=== PATIENT | female | born 1980 | race Hispanic/Latino ===

== ENCOUNTER 2019-07-10 11:34 | Inpatient (IN) | payer BC ==
[~2019-07-10] VITALS: Ht 154.9 cm; Wt 50.4 kg
[~2019-07-10 11:34] MED LIST: FLU VACC QS2019-20 36MOS UP/PF 60 MCG/0.5 ML ML IM SCH
[2019-07-10] MEDS ORDERED: METOCLOPRAMIDE 10 MG/2 ML VIAL ONE (12:00)
[2019-07-10] MEDS ORDERED: SODIUM CHLORIDE 0.9% 1000ML 1,000 ML IV ONE (12:01)
[2019-07-10] MEDS ORDERED: MORPHINE SULFATE 4 MG/1ML SYG ONE (12:01)
[2019-07-10] MEDS ORDERED: MORPHINE SULFATE 2 MG/ML 1ML SYG ONE (12:01)
[2019-07-10] MEDS ORDERED: SODIUM CHLORIDE 0.9% 50 ML IV ONE (12:02)
[2019-07-10] MEDS ORDERED: IOHEXOL-350 75 ML VIAL IV ONE (12:11)
[2019-07-10 12:17] LABS: EOSINOPHILS % (AUTO) 1.2 % (0.0-8.0); LYMPHOCYTES % (AUTO) 54.9 % (21.0-51.0); MEAN CORPUSCULAR HEMOGLOBIN 30.3 pg (27.0-33.0); MEAN CORPUSCULAR HGB CONC 33.2 g/dL (32.0-36.0); MEAN CORPUSCULAR VOLUME 91.2 fL (79-99); MONOCYTES % (AUTO) 9.3 % (3.0-13.0); NEUTROPHILS % (AUTO) 33.6 % (40.0-77.0); NUCLEATED RED BLOOD CELLS 0.1 % (0.0-0.19); PLATELET COUNT (AUTO) 297 K/uL (130-400); RED BLOOD CELL COUNT(AUTO) 4.28 MIL/uL (4.00-5.50); RED CELL DISTRIBUTION WIDTH 22.4 % (11.0-15.5); WHITE BLOOD COUNT (AUTO) 3.2 K/uL (4.8-10.8)
[2019-07-10 12:36] LABS: CREATININE 0.7 mg/dL (0.5-1.5); POTASSIUM 4.3 mmol/L (3.5-5.1)
[2019-07-10 12:40] LABS: ALBUMIN 3.3 g/dL (3.5-5.0); BILIRUBIN,TOTAL 0.5 mg/dL (0.2-1.0); TOTAL PROTEIN, SERUM 6.7 g/dL (6.0-8.3)
[2019-07-10 13:25] LABS: APPEARANCE,URINE Clear (CLEAR); BILIRUBIN,URINE Negative (NEGATIVE); COLOR,URINE Yellow (YELLOW); GLUCOSE, URINE (UA) Negative (NEGATIVE); KETONES,URINE Negative (NEGATIVE); LEUKOCYTE ESTERASE ,URINE Negative (NEGATIVE); NITRATE,URINE Negative (NEGATIVE); OCCULT BLOOD,URINE Negative (NEGATIVE); PROTEIN,URINE Negative (NEGATIVE); UROBILINOGEN,URINE 0.2 mg/dL (0.2-1.0)
[2019-07-10 14:25] VITALS: BP 114/82
[2019-07-10] MEDS ORDERED: PNEUMOCOCCAL VACCINE POLYVALENT 0.5 ML/VIAL [PPV] IM ONE (15:00)
[2019-07-10] MEDS ORDERED: FLU VACC QS2019-20 36MOS UP/PF 60 MCG/0.5 ML ML IM ONE (15:00)
[2019-07-10] MEDS ORDERED: ADDE10 PO (15:01)
[2019-07-10] MEDS ORDERED: OMEP40CA13 PO (15:01)
[2019-07-10] MEDS ORDERED: ALPR0.5T PO (15:01)
[2019-07-10] MEDS ORDERED: PNEUMOCOCCAL VACCINE POLYVALENT 0.5 ML/VIAL [PPV] IM SCH (15:15)
[2019-07-10] MEDS: LACTATED RINGERS 1000ML 1,000 ML IV SCH ×2 (15:26→19:43)
[2019-07-10 16:17] VITALS: BP 106/72
[2019-07-10] MEDS ORDERED: DIATR MEGLU/DIATRIZOATE SODIUM 30 ML BOTTLE ONE ×2 (17:34→18:02)
[2019-07-10 19:00] VITALS: BP 122/82
[2019-07-10] MEDS: MORPHINE SULFATE 2 MG/ML 1ML SYG IVP PRN (19:21)
[2019-07-10 23:33] VITALS: BP 106/61
[2019-07-11 03:05] VITALS: BP 104/64
[2019-07-11 07:48] VITALS: BP 104/57
[2019-07-11] MEDS: MORPHINE SULFATE 2 MG/ML 1ML SYG IVP PRN ×2 (10:57→18:49)
[2019-07-11] MEDS: LACTATED RINGERS 1000ML 1,000 ML IV SCH ×2 (10:58→21:43)
[2019-07-11 12:01] VITALS: BP 99/64
--- NOTE | 2019-07-11 14:15 | NUR ---
DCP CM met with pt discussed dc plans. Pt is independent prior to admission, lives at home with spouse. Denies any equipments/services. Pt feels safe to go back home, still drives and works, spouse able to assist with transportation and needs as necessary. DC plan to home once stable. CM to cont to follow up. Addendum: 07/11/19 at 1416 by ESTELLE LO LVN CM Amended: Links added.
[2019-07-11 16:39] VITALS: BP 96/57
[2019-07-11] MEDS: ONDANSETRON HCL 4 MG/2 ML VIAL IVP PRN (16:39)
[2019-07-11 19:05] VITALS: BP 99/65
[2019-07-11 23:35] VITALS: BP 99/57
[2019-07-12] VITALS (16 sets, daily range): BP systolic 91–160; BP diastolic 53–79
[2019-07-12] MEDS: LACTATED RINGERS 1000ML 1,000 ML IV SCH ×2 (06:38→17:57)
[2019-07-12] MEDS: MORPHINE SULFATE 2 MG/ML 1ML SYG IVP PRN ×2 (09:15→14:31)
[2019-07-12] MEDS ORDERED: MIDAZOLAM HCL 1 MG/ML 2ML VIAL ONE ×2 (15:36→15:48)
[2019-07-12] MEDS ORDERED: FENTANYL CITRATE PF 50 MCG/1 ML 2ML VIAL ONE (15:39)
[2019-07-12] MEDS: PANTOPRAZOLE SODIUM 40 MG TABLET.DR PO SCH (17:54)
--- NOTE | 2019-07-12 19:59 | NUR ---
Nursing Note Informed doctor that pt stated morphine is not working for her and she wants Dilaudid. Dr. Fernandez stated to D/C morphine and to change to Dilaudid IV 0.5mg q4hrs for pain prn.
[2019-07-12] MEDS: HYDROMORPHONE HCL 0.5 MG/0.5 ML ML IVP PRN (20:43)
[2019-07-13] MEDS: LACTATED RINGERS 1000ML 1,000 ML IV SCH ×2 (01:58→14:45)
[2019-07-13] MEDS: HYDROMORPHONE HCL 0.5 MG/0.5 ML ML IVP PRN ×3 (03:51→17:39)
[2019-07-13 04:00] VITALS: BP 102/68
[2019-07-13 05:47] LABS: CREATININE 0.6 mg/dL (0.5-1.5); POTASSIUM 3.5 mmol/L (3.5-5.1)
[2019-07-13] MEDS: PANTOPRAZOLE SODIUM 40 MG TABLET.DR PO SCH ×2 (06:18→16:30)
[2019-07-13 08:00] VITALS: BP 107/76
[2019-07-13] MEDS: ONDANSETRON HCL 4 MG/2 ML VIAL IVP PRN (08:18)
[2019-07-13 11:00] VITALS: BP 108/72
[2019-07-13] MEDS: METOCLOPRAMIDE 10 MG/2 ML VIAL IVP SCH ×3 (12:35→23:20)
--- NOTE | 2019-07-13 12:44 | NUR ---
REGLAN GIVEN PER ORDER, PATIENT REFUSING TO EAT LUNCH. SPOUSE STATED, "MY SAID SHE WILL NOT EAT". DR. ROBLERO AWARE AND ORDERED TO CONTINUE REGLAN IVP AND REPORT IF PATIENT HAS ANY VOMITING.
[2019-07-13 16:00] VITALS: BP 100/74
[2019-07-13 20:00] VITALS: BP 94/61
[2019-07-14] VITALS (7 sets, daily range): BP systolic 93–104; BP diastolic 55–67
[2019-07-14] MEDS: METOCLOPRAMIDE 10 MG/2 ML VIAL IVP SCH ×4 (05:13→23:15)
[2019-07-14] MEDS: PANTOPRAZOLE SODIUM 40 MG TABLET.DR PO SCH ×2 (05:46→16:30)
[2019-07-14] MEDS: HYDROMORPHONE HCL 0.5 MG/0.5 ML ML IVP PRN ×2 (12:03→19:14)
[2019-07-14] MEDS: ONDANSETRON HCL 4 MG/2 ML VIAL IVP PRN (12:03)
[2019-07-14] MEDS: LACTATED RINGERS 1000ML 1,000 ML IV SCH (16:27)
[2019-07-14] MEDS: PANTOPRAZOLE 40 MG/VIAL IVP SCH (20:15)
[2019-07-15 00:08] VITALS: BP 93/55
[2019-07-15] MEDS: HYDROMORPHONE HCL 0.5 MG/0.5 ML ML IVP PRN ×2 (01:59→08:58)
[2019-07-15 04:06] VITALS: BP 90/48
[2019-07-15] MEDS: LACTATED RINGERS 1000ML 1,000 ML IV SCH (05:06)
[2019-07-15] MEDS: METOCLOPRAMIDE 10 MG/2 ML VIAL IVP SCH ×2 (05:07→12:00)
[2019-07-15 07:00] VITALS: BP 85/49
[2019-07-15] MEDS: PANTOPRAZOLE 40 MG/VIAL IVP SCH (08:57)
[2019-07-15 12:02] VITALS: BP 106/71
[2019-07-15] MEDS ORDERED: FLU VACC QS2019-20 36MOS UP/PF 60 MCG/0.5 ML ML IM ONE (14:00)
== END 2019-07-15 14:15 | disposition home or self-care (01) | DRG 381 ==
LOC: EDH 11:34 → EDHIP 13:30 → OBSVTOIN 13:30 → 3BH 14:20
PROVIDERS: ADMIT Surgery; ATTEND Surgery
PROC: 3E0234Z Introduction of Serum, Toxoid and Vaccine into Muscle, Percutaneous Approach (ICD-10-PCS; principal; 2019-07-12)
PROC: 3E02340 Introduction of Influenza Vaccine into Muscle, Percutaneous Approach (ICD-10-PCS; 2019-07-12)
PROC: 0DJ08ZZ Inspection of Upper Intestinal Tract, Via Natural or Artificial Opening Endoscopic (ICD-10-PCS; 2019-07-12)
DX: K28.9 Gastrojejunal ulcer, unspecified as acute or chronic, without hemorrhage or perforation (principal); E44.1 Mild protein-calorie malnutrition; K21.0 Gastro-esophageal reflux disease with esophagitis; K29.70 Gastritis, unspecified, without bleeding; F41.9 Anxiety disorder, unspecified; K76.0 Fatty (change of) liver, not elsewhere classified; Z87.11 Personal history of peptic ulcer disease; Z90.710 Acquired absence of both cervix and uterus; Z87.891 Personal history of nicotine dependence; Z90.49 Acquired absence of other specified parts of digestive tract; Z98.82 Breast implant status; Z98.84 Bariatric surgery status; Z23 Encounter for immunization; Z88.5 Allergy status to narcotic agent
CPT/HCPCS: 36415; 43235; 74177; 74250; 80048; 80053; 81003; 81025; 83690; 84484; 85025; 87324; 90732; 93005; 99152; 99153; A4606; C9113; G0008; G0009; G0378; J1170; J2250; J2270; J2405; J2765; J3010; J7030; J7120; Q9963; Q9967

== ENCOUNTER 2019-07-22 09:43 | Inpatient (IN) | payer BC ==
[~2019-07-22] VITALS: Ht 154.9 cm; Wt 48.1 kg
[~2019-07-22 09:43] MED LIST changes: +ADDE10 PO; +ALPR0.5T PO; -FLU VACC QS2019-20 36MOS UP/PF 60 MCG/0.5 ML ML IM SCH; +OMEP40CA13 PO
[2019-07-22] MEDS ORDERED: ONDANSETRON HCL 4 MG/2 ML VIAL ONE (10:23)
[2019-07-22 10:26] LABS: APPEARANCE,URINE Clear (CLEAR); BILIRUBIN,URINE Negative (NEGATIVE); COLOR,URINE Dark Yellow (YELLOW); GLUCOSE, URINE (UA) Negative (NEGATIVE); KETONES,URINE >=160 mg/dL (NEGATIVE); LEUKOCYTE ESTERASE ,URINE Negative (NEGATIVE); NITRATE,URINE Negative (NEGATIVE); OCCULT BLOOD,URINE Negative (NEGATIVE); PROTEIN,URINE POS 1+ mg/dL (NEGATIVE)
[2019-07-22 10:35] LABS: AMPHET/METH SCREEN,URINE POSITIVE (NEGATIVE); BARBITURATE SCREEN, URINE NEGATIVE (NEGATIVE); BENZODIAZEPINES SCREEN,URINE POSITIVE (NEGATIVE); CANNABINOID SCREEN,URINE NEGATIVE (NEGATIVE); COCAINE SCREEN,URINE NEGATIVE (NEGATIVE); OPIATE SCREEN,URINE NEGATIVE (NEGATIVE); PHENCYCLIDINE SCREEN,URINE NEGATIVE (NEGATIVE)
[2019-07-22 10:36] LABS: BACTERIA,URINE Rare /HPF (None Seen); RBC,URINE 0-1 /HPF (0-1); SQUAMOUS EPITHELIAL CELL,UR Rare /HPF (0-2); WBC,URINE 0-1 /HPF (0-1)
[2019-07-22 10:37] LABS: MUCUS,URINE Many LPF (None Seen)
[2019-07-22 11:22] LABS: BASOPHILS % (AUTO) 0.7 % (0.0-5.0); EOSINOPHILS % (AUTO) 0.7 % (0.0-8.0); HEMATOCRIT 41.8 % (36-48); LYMPHOCYTES % (AUTO) 44.5 % (21.0-51.0); MEAN CORPUSCULAR HEMOGLOBIN 31.7 pg (27.0-33.0); MEAN CORPUSCULAR HGB CONC 33.7 g/dL (32.0-36.0); MEAN CORPUSCULAR VOLUME 94.2 fL (79-99); MONOCYTES % (AUTO) 9.3 % (3.0-13.0); NEUTROPHILS % (AUTO) 44.8 % (40.0-77.0); NUCLEATED RED BLOOD CELLS 0.1 % (0.0-0.19); PLATELET COUNT (AUTO) 306 K/uL (130-400); RED BLOOD CELL COUNT(AUTO) 4.44 MIL/uL (4.00-5.50); RED CELL DISTRIBUTION WIDTH 19.1 % (11.0-15.5); WHITE BLOOD COUNT (AUTO) 4.9 K/uL (4.8-10.8)
[2019-07-22 11:27] LABS: CREATININE 0.9 mg/dL (0.5-1.5); POTASSIUM 3.7 mmol/L (3.5-5.1)
[2019-07-22 11:31] LABS: ALBUMIN 3.1 g/dL (3.5-5.0); BILIRUBIN,TOTAL 0.8 mg/dL (0.2-1.0); TOTAL PROTEIN, SERUM 6.9 g/dL (6.0-8.3)
[2019-07-22] MEDS ORDERED: SODIUM CHLORIDE 0.9% 1000ML 1,000 ML IV ONE (11:45)
[2019-07-22 12:44] LABS: INR 0.93 (0.85-1.15)
[2019-07-22 12:46] LABS: PROTHROMBIN TIME 9.6 SEC (9.6-11.6)
[2019-07-22] MEDS ORDERED: LIDOCAINE HCL-MPF 1% 2ML VIAL IJ PRN (14:30)
[2019-07-22] MEDS: DEXTROSE 5 % AND 0.9 % NACL 1,000 ML IV SCH ×3 (14:30→23:42)
[2019-07-22] MEDS ORDERED: POTASSIUM CHLORIDE 20MEQ/100ML 100 ML IV PRN (14:30)
[2019-07-22] MEDS ORDERED: ACETAMINOPHEN 325 MG TAB PO PRN (14:30)
[2019-07-22] MEDS ORDERED: POTASSIUM CHLORIDE 10% ELIXIR 20 MEQ/15 ML UDCUP PO PRN (14:30)
[2019-07-22] MEDS ORDERED: ACETAMINOPHEN 325 MG TAB ONE (14:44)
[2019-07-22] MEDS ORDERED: DEXTROSE 5 % AND 0.9 % NACL 1,000 ML IV ONE (14:50)
[2019-07-22 17:35] VITALS: BP 107/64
[2019-07-22] MEDS: ONDANSETRON HCL 4 MG/2 ML VIAL IVP PRN (18:16)
[2019-07-22] MEDS: MORPHINE SULFATE 2 MG/ML 1ML SYG IVP PRN (18:16)
[2019-07-22 19:25] VITALS: BP 109/69
[2019-07-22 23:30] VITALS: BP 98/66
--- NOTE | 2019-07-23 03:28 | NUR ---
ASLEEP Pt sleeping ,arousable.States has some pain but tolerable.Instructed to call for assistance.
[2019-07-23 03:30] VITALS: BP 92/62
[2019-07-23 05:46] LABS: HEMATOCRIT 32.8 % (36-48); MEAN CORPUSCULAR HGB CONC 33.6 g/dL (32.0-36.0); MEAN CORPUSCULAR VOLUME 95.1 fL (79-99); PLATELET COUNT (AUTO) 219 K/uL (130-400); RED BLOOD CELL COUNT(AUTO) 3.44 MIL/uL (4.00-5.50); RED CELL DISTRIBUTION WIDTH 18.9 % (11.0-15.5)
[2019-07-23] MEDS: DEXTROSE 5 % AND 0.9 % NACL 1,000 ML IV SCH ×2 (05:51→18:58)
[2019-07-23] MEDS: MORPHINE SULFATE 2 MG/ML 1ML SYG IVP PRN ×2 (05:55→16:55)
[2019-07-23 06:02] LABS: ALBUMIN 2.1 g/dL (3.5-5.0); BILIRUBIN,TOTAL 0.8 mg/dL (0.2-1.0); CREATININE 0.6 mg/dL (0.5-1.5); MAGNESIUM 1.7 mg/dL (1.80-2.40); POTASSIUM 3.3 mmol/L (3.5-5.1); TOTAL PROTEIN, SERUM 4.9 g/dL (6.0-8.3)
[2019-07-23] MEDS: MAGNESIUM 2GM PREMIX 50ML 50 ML IV PRN (06:32)
[2019-07-23 07:30] VITALS: BP 99/60
[2019-07-23] MEDS ORDERED: MAGNESIUM 2GM PREMIX 50ML 50 ML IV SCH (08:45)
[2019-07-23] MEDS: POTASSIUM CHLORIDE 20 MEQ ERTAB PO PRN ×2 (09:31→16:55)
[2019-07-23 11:00] VITALS: BP 107/74
[2019-07-23 11:47] LABS: INR 1.02 (0.85-1.15); PARTIAL THROMBOPLASTIN TIME 25.4 SEC (26.3-35.5); PROTHROMBIN TIME 10.7 SEC (9.6-11.6)
[2019-07-23] MEDS: METOCLOPRAMIDE 10 MG/2 ML VIAL IVP SCH ×3 (13:19→23:07)
[2019-07-23] MEDS: LORAZEPAM 2 MG/ML 1 ML VIAL IVP PRN (13:20)
--- NOTE | 2019-07-23 14:32 | NUR ---
DCP CM met with pt discussed dc plans. Pt is independent prior to admission, lives at home w/spouse. Denies any equipments/services. Pt feels safe to go back home, still drives and works, spouse able to assist with transportation and needs as necessary. DC plan to home once stable. CM to cont to follow up. Addendum: 07/23/19 at 1433 by ESTELLE LO LVN CM Amended: Links added.
--- NOTE | 2019-07-23 14:57 | NUR ---
PICC LINE 5 PERSIAN 2 LUMEN PICC LINE INSERTED USING STERILE TECHNIQUE TO LEFT UPPER ARM. PT TOLERATED WELL. LINE INSERTED WITHOUT COMPLICATIONS, BOTH PORTS FLUSHED WITHOUT COMPLICATIONS, GOOD BLOOD RETURN ON BOTH PORTS. PICC LINE DRESS PER HOSPITAL PROTOCOL. 37CM INSERTION SITE. 0CM EXPOSED. SITE ASYMPTOMATIC REPORT GIVEN TO ALEXYS LANDEROS RN. PENDING CHEST XRAY REPORT FROM MD BEFORE USING. PICC LINE EDUCATIONS GIVEN PT/SPOUSE. PT DENIED ANY PAIN , NUMBNESS, TINGLING TO LEFT UPPER ARM.
--- NOTE | 2019-07-23 15:11 | NUR ---
TPN ORDERS SEND TO PHARMACY.
[2019-07-23 16:00] VITALS: BP_SYST 107; BP_SYST 97; BP_DIAS 58; BP_DIAS 74
--- NOTE | 2019-07-23 17:19 | NUR ---
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 Recommendations given to RN. Pt LBM 07/22/19. Pt monitored labs: K 3.3, BUN 6, Glu 126, Ca 7.2, Mg 1.70, AST 84, Alb 2.1. RD to continue to monitor. Please notify RD as additional nutrition concerns arise. Thank you. Addendum: 07/23/19 at [address] RD Amended: Links added.
--- NOTE | 2019-07-23 18:25 | NUR ---
WAITING FOR CALL BACK FROM DR. OSBALDO CHOU TO USE PICC LINE.HAS BEEN PAGED TWICE. WILL CALL ON PERSONAL IF IF [employer] CAN GET #
[2019-07-23 20:00] VITALS: BP 94/62
[2019-07-23] MEDS: M.V.I. IV [ADULT] 10 ML in CLINIMIX E 5%-15% 2,000 ML IV SCH (20:36)
[2019-07-23 23:32] VITALS: BP 87/58
--- NOTE | 2019-07-23 23:33 | NUR ---
BP Bp 87/58,pt asymptomatic.Will cont to monitor.
[2019-07-24] VITALS (8 sets, daily range): BP systolic 86–110; BP diastolic 50–74
[2019-07-24] MEDS: METOCLOPRAMIDE 10 MG/2 ML VIAL IVP SCH ×4 (05:10→20:07)
[2019-07-24 06:51] LABS: CREATININE 0.5 mg/dL (0.5-1.5); POTASSIUM 4.3 mmol/L (3.5-5.1)
[2019-07-24 06:52] LABS: MAGNESIUM 1.7 mg/dL (1.80-2.40)
[2019-07-24] MEDS: MAGNESIUM 2GM PREMIX 50ML 50 ML IV PRN (09:17)
[2019-07-24] MEDS: FAT EMULSIONS 20% 250ML 250 ML IV SCH (09:17)
[2019-07-24] MEDS: MORPHINE SULFATE 2 MG/ML 1ML SYG IVP PRN ×2 (09:35→17:02)
[2019-07-24] MEDS: M.V.I. IV [ADULT] 10 ML in CLINIMIX E 5%-15% 2,000 ML IV SCH (15:30)
--- NOTE | 2019-07-24 15:59 | NUR ---
CM Note: [facility] pending approval; [facility] pending approval and delivery for TPN CM met with pt discussed MD recommendations for TPN at home w/HH, pt agreeable. JESSY signed for [facility]/any IN network HH, and [facility]/any In Network DME/Pharmacy. Faxed order, clinicals, picc info to [facility] and [facility], confirmation received. Spoke to Georgie w/[facility] stated in network w/pt's insurance, will check benefits. Pt pending approval for [facility] and [facility] for TPN. Primary nurse aware. CM to cont to follow up.
[2019-07-24] MEDS ORDERED: ZOLPIDEM TARTRATE 5 MG TAB PO PRN (17:45)
[2019-07-24] MEDS ORDERED: M.V.I. IV [ADULT] 10 ML in CLINIMIX E 5%-15% 2,000 ML IV ONE (21:00)
[2019-07-25 04:02] VITALS: BP 104/65
[2019-07-25] MEDS: METOCLOPRAMIDE 10 MG/2 ML VIAL IVP SCH ×4 (04:38→20:05)
[2019-07-25 07:00] VITALS: BP 99/59
[2019-07-25] MEDS: ONDANSETRON HCL 4 MG/2 ML VIAL IVP PRN ×2 (09:26→20:05)
[2019-07-25] MEDS: MORPHINE SULFATE 2 MG/ML 1ML SYG IVP PRN ×2 (09:28→17:34)
[2019-07-25 12:00] VITALS: BP 95/59
[2019-07-25] MEDS: LORAZEPAM 2 MG/ML 1 ML VIAL IVP PRN (12:27)
--- NOTE | 2019-07-25 15:51 | NUR ---
CM Note: [facility] approval Spoke to Armando kingsley/[facility], pt has approval. Requested to have a signed order for [facility] from Dr Schmitt. Flagged order in chart, pending MD to sign. Primary nurse aware. CM to cont to follow up.
--- NOTE | 2019-07-25 15:52 | NUR ---
CM Note [facility]: pending approval and delivery CM spoke to Shira kingsley/Willian , faxed over a generated script requesting Dr Schmitt to sign script. Flagged in chart. Dr Schmitt made aware to sign order for [facility] as well as [facility] for TPN. MD pending to sign. Primary nurse aware. CM to cont to follow up.
--- NOTE | 2019-07-25 15:56 | NUR ---
CM Note: [facility] approval pending delivery Spoke to Shira Orellana. Pt has approval for TPN pending delivery as soon as signed script received. Estimated TOA for TPN via [employer] Monday. Dr Schmitt pending to sign script at this time, flagged in chart. Primary nurse aware. CM to cont to follow up.
[2019-07-25 16:00] VITALS: BP 112/76
[2019-07-25 20:23] VITALS: BP 99/66
[2019-07-25] MEDS ORDERED: M.V.I. IV [ADULT] 10 ML in CLINIMIX E 5%-15% 2,000 ML IV ONE (21:00)
[2019-07-25 23:45] VITALS: BP 99/63
[2019-07-26] MEDS: MORPHINE SULFATE 2 MG/ML 1ML SYG IVP PRN (03:15)
[2019-07-26] MEDS: METOCLOPRAMIDE 10 MG/2 ML VIAL IVP SCH ×2 (03:38→08:27)
[2019-07-26 04:29] VITALS: BP 100/55
[2019-07-26 05:42] LABS: HEMATOCRIT 35.3 % (36-48); MEAN CORPUSCULAR HEMOGLOBIN 31.9 pg (27.0-33.0); PLATELET COUNT (AUTO) 224 K/uL (130-400); RED BLOOD CELL COUNT(AUTO) 3.75 MIL/uL (4.00-5.50); RED CELL DISTRIBUTION WIDTH 18.1 % (11.0-15.5)
[2019-07-26 05:56] LABS: ALBUMIN 2.6 g/dL (3.5-5.0); BILIRUBIN,TOTAL 0.6 mg/dL (0.2-1.0); CREATININE 0.6 mg/dL (0.5-1.5); MAGNESIUM 2.7 mg/dL (1.80-2.40); POTASSIUM 4.3 mmol/L (3.5-5.1); TOTAL PROTEIN, SERUM 5.8 g/dL (6.0-8.3)
[2019-07-26] MEDS: ONDANSETRON HCL 4 MG/2 ML VIAL IVP PRN (08:26)
[2019-07-26] MEDS: FAT EMULSIONS 20% 250ML 250 ML IV SCH (08:27)
[2019-07-26 08:48] VITALS: BP 110/65
[2019-07-26] MEDS ORDERED: PANTOPRAZOLE SODIUM 40 MG TABLET.DR PO SCH (09:00)
--- NOTE | 2019-07-26 10:04 | NUR ---
CM Note: [facility] approved, [facility] approved TPN to arrive via [employer] on Monday CM spoke to Georgie kingsley/ STEVEN , received signed script by Dr Schmitt, pt approved, made aware TPN will be arriving Monday via [employer]. CM spoke to Shira kingsley/Willian, received signed script by Dr Schmitt, states TPN sent out this morning, will be arriving at pt's residence Monday via [employer]. Primary nurse made of the above. Pt safe to dc this afternoon vis private car. CM to cont to follow up.
[2019-07-26 11:51] VITALS: BP 103/60
--- NOTE | 2019-07-26 15:31 | NUR ---
RD FOLLOW UP Pt tolerating Full Liquid Diet as per Pt. Pt with 50%-75% PO intake this afternoon, d/t dislike Liquid item options. RD to update food preferences. Pt declines Ensure with meals. Recommend to add 30mL ProMod TID. Pt with Jejunal stricture pending repair based on nutrition status. Improved Alb(2.6) and PO intake. Pt with no reported GI distress this afternoon. Pt also continues with Clinimix 5/15 @75mls/hr. Pt LBM 07/26. Pt monitored labs: Ca 8.2, Mg 2.70, AST 208, ALT 104, Alb 2.6. RD to continue to monitor. Please notify RD as nutritional concerns arise. Thank you. Addendum: 07/26/19 at [address] RD Amended: Links added.
== END 2019-07-26 16:00 | disposition home health service (06) | DRG 381 ==
LOC: EDH 09:43 → EDHIP 14:04 → OBSVTOIN 14:04 → 3CH 17:36
PROVIDERS: ADMIT Internal Medicine Infectious Disease; ATTEND Internal Medicine Infectious Disease
PROC: 02HV33Z Insertion of Infusion Device into Superior Vena Cava, Percutaneous Approach (ICD-10-PCS; principal; 2019-07-23)
DX: K31.5 Obstruction of duodenum (principal); E46 Unspecified protein-calorie malnutrition; E86.0 Dehydration; R53.81 Other malaise; E83.42 Hypomagnesemia; G89.29 Other chronic pain; Z90.710 Acquired absence of both cervix and uterus; Z98.82 Breast implant status; Z98.84 Bariatric surgery status; E66.9 Obesity, unspecified; Z68.20 Body mass index [BMI] 20.0-20.9, adult; Z90.49 Acquired absence of other specified parts of digestive tract
CPT/HCPCS: 36415; 71045; 74018; 80048; 80053; 80305; 81001; 82150; 82550; 83690; 83735; 84484; 85025; 85027; 85610; 85730; 93005; C1894; G0378; J2060; J2405; J2765; J3475; J7030; J7042

== ENCOUNTER 2021-09-05 07:18 | Inpatient (IN) | payer BC ==
[~2021-09-05] VITALS: Ht 154.9 cm; Wt 63.5 kg
[~2021-09-05 07:18] MED LIST changes: -OMEP40CA13 PO
[2021-09-05 07:58] LABS: BASOPHILS % (AUTO) 0.8 % (0.0-5.0); EOSINOPHILS % (AUTO) 0.2 % (0.0-8.0); HEMATOCRIT 39.2 % (36-48); LYMPHOCYTES % (AUTO) 16.3 % (21.0-51.0); MEAN CORPUSCULAR HEMOGLOBIN 29.9 pg (27.0-33.0); MEAN CORPUSCULAR HGB CONC 30.6 g/dL (32.0-36.0); MEAN CORPUSCULAR VOLUME 97.5 fL (79-99); MONOCYTES % (AUTO) 9.3 % (3.0-13.0); NEUTROPHILS % (AUTO) 72.5 % (40.0-77.0); PLATELET COUNT (AUTO) 305 K/uL (130-400); RED BLOOD CELL COUNT(AUTO) 4.02 MIL/uL (4.00-5.50); RED CELL DISTRIBUTION WIDTH 18.5 % (11.0-15.5); WHITE BLOOD COUNT (AUTO) 5.3 K/uL (4.8-10.8)
[2021-09-05] MEDS ORDERED: MORPHINE 2 MG SYG IVP SCH (08:00)
[2021-09-05] MEDS ORDERED: ONDANSETRON 4MG INJ IVP SCH (08:00)
[2021-09-05 08:18] LABS: ALBUMIN 4.6 g/dL (3.5-5.0); BILIRUBIN,TOTAL 3.3 mg/dL (0.2-1.0); CREATININE 0.7 mg/dL (0.5-1.5); POTASSIUM 3.9 mmol/L (3.5-5.1)
[2021-09-05] MEDS ORDERED: PHARMACY COMMUNICATION MISC SCH (08:30)
[2021-09-05] MEDS ORDERED: ZOSYN 3.375GM+NS 50ML 50 ML IV SCH (09:00)
[2021-09-05] MEDS: 0.9%NACL 1000ML 1,434 ML IV SCH (09:10)
[2021-09-05 09:15] LABS: ABG OXYGEN SATURATION 78.8 % (95.0-99.0); BASE EXCESS,VENOUS BLOOD GAS -20.1 (-2.0-3.0); PCO2,VENOUS BLOOD GAS 21 (32-45); PH,VENOUS BLOOD GAS 7.142 (7.350-7.450)
[2021-09-05] MEDS ORDERED: IOHEXOL-350 75 ML VIAL IV ONE (09:21)
[2021-09-05] MEDS ORDERED: DEXTROSE 50%-WATER 50 ML DISP.SYRIN IV ONE (09:26)
[2021-09-05 09:52] LABS: ACETAMINOPHEN < 1 mcg/mL (10-30); SALICYLATE < 2.8 mg/dL (2.8-20.0)
[2021-09-05] MEDS ORDERED: HYDROMORPHONE 0.5 MG SYG (0.5MG/0.5ML) IVP SCH (10:00)
[2021-09-05 10:14] LABS: INR 1.06 (0.85-1.15); PROTHROMBIN TIME 11.5 SEC (9.6-11.6)
[2021-09-05 10:15] LABS: PARTIAL THROMBOPLASTIN TIME 27.9 SEC (26.3-35.5)
[2021-09-05 11:26] LABS: APPEARANCE,URINE Turbid (CLEAR); BILIRUBIN,URINE Negative (NEGATIVE); COLOR,URINE Yellow (YELLOW); GLUCOSE, URINE (UA) TRACE mg/dL (NEGATIVE); KETONES,URINE >=160 mg/dL (NEGATIVE); LEUKOCYTE ESTERASE ,URINE Trace (NEGATIVE); NITRATE,URINE Negative (NEGATIVE); OCCULT BLOOD,URINE Negative (NEGATIVE); PH,URINE 5.5 (5.0-8.0); PROTEIN,URINE POS 1+ mg/dL (NEGATIVE)
[2021-09-05] MEDS ORDERED: GADOTERATE MEGLUMINE 10 MMOL/20 ML VIAL IV ONE (11:27)
[2021-09-05] MEDS ORDERED: MAGNESIUM 2GM PREMIX 50ML 50 ML IV NR (11:30)
[2021-09-05] MEDS ORDERED: POTASSIUM CHLORIDE 10% ELIXIR 20 MEQ/15 ML UDCUP PO PRN (11:30)
[2021-09-05] MEDS ORDERED: ACETAMINOPHEN 325 MG TAB PO PRN (11:30)
[2021-09-05 11:31] LABS: BACTERIA,URINE Few /HPF (None Seen); RBC,URINE 0-1 /HPF (0-1); SQUAMOUS EPITHELIAL CELL,UR Many /HPF (0-2)
[2021-09-05 11:33] LABS: AMPHET/METH SCREEN,URINE POSITIVE (NEGATIVE); BARBITURATE SCREEN, URINE NEGATIVE (NEGATIVE); BENZODIAZEPINES SCREEN,URINE POSITIVE (NEGATIVE); CANNABINOID SCREEN,URINE NEGATIVE (NEGATIVE); COCAINE SCREEN,URINE NEGATIVE (NEGATIVE); OPIATE SCREEN,URINE NEGATIVE (NEGATIVE); PHENCYCLIDINE SCREEN,URINE NEGATIVE (NEGATIVE)
[2021-09-05 11:41] LABS: ALCOHOL, BLOOD 30 mg/dL (0-10); AMYLASE 182 U/L (25-115)
[2021-09-05] MEDS ORDERED: MAGNESIUM 2GM PREMIX 50ML 50 ML IV PRN (12:30)
[2021-09-05] MEDS: DEXTROSE 5 % AND 0.9 % NACL 1,000 ML IV SCH ×2 (12:38→19:30)
[2021-09-05] MEDS: MORPHINE 2 MG SYG IVP PRN ×2 (14:36→21:48)
[2021-09-05] MEDS: ONDANSETRON 4MG INJ IVP PRN ×2 (14:36→21:48)
[2021-09-05] MEDS: M.V.I. IV [ADULT] 10 ML, THIAMINE HCL 100 MG in 0.9%NACL 1000ML 1,000 ML IV SCH (14:37)
[2021-09-05] MEDS: TRAMADOL HCL 50 MG TABLET PO PRN (18:38)
[2021-09-06] MEDS: MORPHINE 2 MG SYG IVP PRN ×4 (04:02→22:26)
[2021-09-06] MEDS: ONDANSETRON 4MG INJ IVP PRN ×3 (04:02→15:53)
[2021-09-06] MEDS: 0.9%NACL 1000ML 1,434 ML IV SCH (05:26)
[2021-09-06] MEDS: DEXTROSE 5 % AND 0.9 % NACL 1,000 ML IV SCH ×3 (06:45→23:46)
[2021-09-06 06:52] LABS: BASOPHILS % (AUTO) 0.4 % (0.0-5.0); EOSINOPHILS % (AUTO) 2.6 % (0.0-8.0); HEMATOCRIT 31.2 % (36-48); MEAN CORPUSCULAR HEMOGLOBIN 29.8 pg (27.0-33.0); MEAN CORPUSCULAR HGB CONC 32.4 g/dL (32.0-36.0); MONOCYTES % (AUTO) 8.9 % (3.0-13.0); NEUTROPHILS % (AUTO) 77.5 % (40.0-77.0); PLATELET COUNT (AUTO) 178 K/uL (130-400); RED BLOOD CELL COUNT(AUTO) 3.39 MIL/uL (4.00-5.50); RED CELL DISTRIBUTION WIDTH 17.2 % (11.0-15.5); WHITE BLOOD COUNT (AUTO) 5.4 K/uL (4.8-10.8)
[2021-09-06 07:10] LABS: ALBUMIN 3.4 g/dL (3.5-5.0); BILIRUBIN,TOTAL 3.5 mg/dL (0.2-1.0); CREATININE 0.7 mg/dL (0.5-1.5); MAGNESIUM 1.8 mg/dL (1.80-2.40); POTASSIUM 3.7 mmol/L (3.5-5.1); TOTAL PROTEIN, SERUM 6.9 g/dL (6.0-8.3)
[2021-09-06 08:51] VITALS: BP 137/89
[2021-09-06] MEDS ORDERED: M.V.I. IV [ADULT] 10 ML, FOLIC ACID 1 MG, THIAMINE HCL 100 MG in 0.9%NACL 1000ML 1,000 ML IV SCH (09:00)
[2021-09-06 12:25] VITALS: BP 138/81
[2021-09-06] MEDS: M.V.I. IV [ADULT] 10 ML, THIAMINE HCL 100 MG in 0.9%NACL 1000ML 1,000 ML IV SCH (14:14)
[2021-09-06 15:57] VITALS: BP 129/86
[2021-09-06 19:30] VITALS: BP 117/76
[2021-09-06 23:44] VITALS: BP 110/62
[2021-09-07 03:19] VITALS: BP 98/59
[2021-09-07 07:14] VITALS: BP 117/73
[2021-09-07 07:44] LABS: BILIRUBIN,TOTAL 2.5 mg/dL (0.2-1.0); CREATININE 0.5 mg/dL (0.5-1.5); MAGNESIUM 1.8 mg/dL (1.80-2.40); TOTAL PROTEIN, SERUM 5.9 g/dL (6.0-8.3)
[2021-09-07 08:07] LABS: POTASSIUM 2.7 mmol/L (3.5-5.1)
[2021-09-07] MEDS: DEXTROSE 5 % AND 0.9 % NACL 1,000 ML IV SCH ×2 (08:11→19:44)
[2021-09-07] MEDS: MAGNESIUM 2GM PREMIX 50ML 50 ML IV PRN (08:40)
[2021-09-07] MEDS: POTASSIUM CHLORIDE 20MEQ/100ML 100 ML IV PRN ×3 (10:55→19:44)
[2021-09-07 11:30] VITALS: BP 119/74
[2021-09-07 16:15] VITALS: BP 118/79
[2021-09-07] MEDS: M.V.I. IV [ADULT] 10 ML, THIAMINE HCL 100 MG in 0.9%NACL 1000ML 1,000 ML IV SCH (16:59)
[2021-09-07 19:34] VITALS: BP 106/75
[2021-09-07 23:15] VITALS: BP 116/73
[2021-09-08] MEDS: MORPHINE 2 MG SYG IVP PRN (00:41)
[2021-09-08] MEDS: DEXTROSE 5 % AND 0.9 % NACL 1,000 ML IV SCH ×3 (01:53→19:01)
[2021-09-08 03:15] VITALS: BP 122/80
[2021-09-08] MEDS: TRAMADOL HCL 50 MG TABLET PO PRN (03:28)
[2021-09-08 05:18] LABS: HEMATOCRIT 27.8 % (36-48); MEAN CORPUSCULAR HEMOGLOBIN 29.9 pg (27.0-33.0); MEAN CORPUSCULAR HGB CONC 31.3 g/dL (32.0-36.0); MEAN CORPUSCULAR VOLUME 95.5 fL (79-99); RED BLOOD CELL COUNT(AUTO) 2.91 MIL/uL (4.00-5.50); RED CELL DISTRIBUTION WIDTH 18.6 % (11.0-15.5); WHITE BLOOD COUNT (AUTO) 3.1 K/uL (4.8-10.8)
[2021-09-08 05:25] LABS: MAGNESIUM 2.1 mg/dL (1.80-2.40)
[2021-09-08] MEDS: LIDOCAINE HCL-MPF 1% 2ML VIAL IJ PRN ×2 (06:01→08:48)
[2021-09-08] MEDS: POTASSIUM CHLORIDE 20MEQ/100ML 100 ML IV PRN ×2 (06:01→08:44)
[2021-09-08 07:17] VITALS: BP 117/77
[2021-09-08 11:18] VITALS: BP 110/75
[2021-09-08] MEDS: M.V.I. IV [ADULT] 10 ML, THIAMINE HCL 100 MG in 0.9%NACL 1000ML 1,000 ML IV SCH (16:02)
[2021-09-08 16:28] VITALS: BP 123/77
[2021-09-08 19:30] VITALS: BP 110/69
[2021-09-08] MEDS ORDERED: FLU VACC QS2021-22(6MOS UP)/PF 60 MCG/0.5 ML ML IM ONE ×2 (20:00→21:28)
[2021-09-08 23:17] VITALS: BP 111/74
[2021-09-09] MEDS: DEXTROSE 5 % AND 0.9 % NACL 1,000 ML IV SCH ×2 (03:02→14:27)
[2021-09-09 03:05] VITALS: BP 113/73
[2021-09-09] MEDS: TRAMADOL HCL 50 MG TABLET PO PRN (03:51)
[2021-09-09 06:48] LABS: HEMATOCRIT 27.2 % (36-48); MEAN CORPUSCULAR HEMOGLOBIN 30.3 pg (27.0-33.0); MEAN CORPUSCULAR HGB CONC 32.7 g/dL (32.0-36.0); MEAN CORPUSCULAR VOLUME 92.5 fL (79-99); RED BLOOD CELL COUNT(AUTO) 2.94 MIL/uL (4.00-5.50); WHITE BLOOD COUNT (AUTO) 3.7 K/uL (4.8-10.8)
[2021-09-09 07:02] LABS: BILIRUBIN,TOTAL 1.2 mg/dL (0.2-1.0); CREATININE 0.5 mg/dL (0.5-1.5); MAGNESIUM 1.6 mg/dL (1.80-2.40); POTASSIUM 3.2 mmol/L (3.5-5.1); TOTAL PROTEIN, SERUM 6.1 g/dL (6.0-8.3)
[2021-09-09 07:07] VITALS: BP 95/66
[2021-09-09] MEDS: KCL 20 MEQ ERTAB PO PRN ×3 (08:29→13:17)
[2021-09-09] MEDS: MAGNESIUM 2GM PREMIX 50ML 50 ML IV PRN (08:30)
[2021-09-09] MEDS: MORPHINE 2 MG SYG IVP PRN (09:10)
[2021-09-09] MEDS: M.V.I. IV [ADULT] 10 ML, THIAMINE HCL 100 MG in 0.9%NACL 1000ML 1,000 ML IV SCH (09:57)
[2021-09-09 11:08] VITALS: BP 117/81
[2021-09-09] MEDS ORDERED: MAGNESIUM 4GM PREMIX 100ML 100 ML IV SCH (14:30)
[2021-09-09] MEDS: ONDANSETRON 4MG INJ IVP PRN (14:33)
[2021-09-09 16:06] VITALS: BP 116/86
== END 2021-09-09 18:55 | disposition home or self-care (01) | DRG 439 ==
LOC: EDH 07:18 → EDHIP 10:00 → WSH 09-06 08:25
PROVIDERS: ADMIT Internal Medicine Infectious Disease; ATTEND Internal Medicine Infectious Disease
DX: K85.20 Alcohol induced acute pancreatitis without necrosis or infection (principal); E87.2 Acidosis; E87.1 Hypo-osmolality and hyponatremia; K59.00 Constipation, unspecified; F90.9 Attention-deficit hyperactivity disorder, unspecified type; F32.A Depression, unspecified; F17.210 Nicotine dependence, cigarettes, uncomplicated; R16.0 Hepatomegaly, not elsewhere classified; E83.42 Hypomagnesemia; E87.6 Hypokalemia; R53.81 Other malaise; E86.0 Dehydration; F10.10 Alcohol abuse, uncomplicated; K70.0 Alcoholic fatty liver; Z87.11 Personal history of peptic ulcer disease; Z88.5 Allergy status to narcotic agent; Z23 Encounter for immunization; Z90.710 Acquired absence of both cervix and uterus; Z90.49 Acquired absence of other specified parts of digestive tract; Z98.84 Bariatric surgery status; Z80.0 Family history of malignant neoplasm of digestive organs
CPT/HCPCS: 36415; 36600; 71045; 74177; 74183; 76705; 80053; 80305; 81001; 82010; 82150; 82435; 82550; 82803; 82947; 82948; 83605; 83690; 83735; 84132; 84145; 84295; 84484; 85025; 85027; 85610; 85730; 87040; 99291; G0378; G0481; J1170; J2405; J2543; J3411; J3475; J3480; J3490; J7030; J7042; J7070; Q2035; Q9967

== ENCOUNTER 2021-11-17 14:10 | Emergency (ER) | payer BC ==
[~2021-11-17] VITALS: Ht 154.9 cm; Wt 61.2 kg
[2021-11-17 14:50] LABS: BASOPHILS % (AUTO) 0.5 % (0.0-5.0); EOSINOPHILS % (AUTO) 2.4 % (0.0-8.0); HEMATOCRIT 28.8 % (36-48); LYMPHOCYTES % (AUTO) 17.1 % (21.0-51.0); MEAN CORPUSCULAR HEMOGLOBIN 33.8 pg (27.0-33.0); MEAN CORPUSCULAR HGB CONC 30.9 g/dL (32.0-36.0); MEAN CORPUSCULAR VOLUME 109.5 fL (79-99); MONOCYTES % (AUTO) 7.7 % (3.0-13.0); NEUTROPHILS % (AUTO) 71.8 % (40.0-77.0); PLATELET COUNT (AUTO) 326 K/uL (130-400); RED BLOOD CELL COUNT(AUTO) 2.63 MIL/uL (4.00-5.50); RED CELL DISTRIBUTION WIDTH 14.6 % (11.0-15.5); WHITE BLOOD COUNT (AUTO) 7.5 K/uL (4.8-10.8)
[2021-11-17 14:59] LABS: APPEARANCE,URINE SL CLOUDY (CLEAR); BILIRUBIN,URINE LARGE (NEGATIVE); COLOR,URINE BROWN (YELLOW); GLUCOSE, URINE (UA) 100 mg/dL (NEGATIVE); KETONES,URINE 5 mg/dL (NEGATIVE); LEUKOCYTE ESTERASE ,URINE NEGATIVE (NEGATIVE); NITRATE,URINE POSITIVE (NEGATIVE); OCCULT BLOOD,URINE NEGATIVE (NEGATIVE); PH,URINE 5.5 (5.0-8.0); PROTEIN,URINE TRACE mg/dL (NEGATIVE)
[2021-11-17] MEDS ORDERED: FAMOTIDINE 20MG VIAL IV ONE (15:00)
[2021-11-17] MEDS ORDERED: ONDANSETRON 4MG INJ IVP ONE (15:00)
[2021-11-17] MEDS ORDERED: MORPHINE 4 MG SYG IV ONE (15:00)
[2021-11-17] MEDS ORDERED: 0.9%NACL 1000ML 1,000 ML IV ONE (15:00)
[2021-11-17 15:04] LABS: INR 1.47 (0.85-1.15); PROTHROMBIN TIME 15.5 SEC (9.6-11.6)
[2021-11-17 15:05] LABS: PARTIAL THROMBOPLASTIN TIME 36.2 SEC (26.3-35.5)
[2021-11-17 15:07] LABS: HCG,QUAL RESULT NEGATIVE (NEGATIVE)
[2021-11-17 15:08] LABS: CREATININE 0.6 mg/dL (0.5-1.5); POTASSIUM 3.9 mmol/L (3.5-5.1)
[2021-11-17 15:21] LABS: ALBUMIN 1.8 g/dL (3.5-5.0); TOTAL PROTEIN, SERUM 5.7 g/dL (6.0-8.3)
[2021-11-17] MEDS ORDERED: CEFTRIAXONE 1G VIAL IV ONE (15:30)
[2021-11-17] MEDS ORDERED: LACTULOSE 20 GM/30 ML UDCUP PO ONE (15:30)
[2021-11-17 15:32] LABS: MUCUS,URINE Few LPF (None Seen); RBC,URINE 0-1 /HPF (0-1); SQUAMOUS EPITHELIAL CELL,UR Moderate /HPF (0-2)
[2021-11-17 15:33] LABS: BACTERIA,URINE Moderate /HPF (None Seen)
[2021-11-17] MEDS ORDERED: IOHEXOL-350 75 ML VIAL IV ONE (15:49)
[2021-11-17] MEDS ORDERED: ONDA4TAB10 PO (17:18)
[2021-11-17] MEDS ORDERED: CEPH500B PO (17:18)
[2021-11-17 17:32] VITALS: BP 112/67
== END 2021-11-17 17:38 | disposition home or self-care (01) ==
LOC: EDH 14:10
DX: K74.60 Unspecified cirrhosis of liver (principal); R11.2 Nausea with vomiting, unspecified; R10.11 Right upper quadrant pain; N39.0 Urinary tract infection, site not specified; E80.6 Other disorders of bilirubin metabolism; E72.4 Disorders of ornithine metabolism; F41.9 Anxiety disorder, unspecified; Z98.890 Other specified postprocedural states; Z88.5 Allergy status to narcotic agent
CPT/HCPCS: 36415; 74178; 76705; 80053; 81001; 81025; 82140; 83690; 85025; 85610; 85730; 87088; 96374; 96375; 99285; J0696; J2270; J2405; J3490; J7030; Q9967

== ENCOUNTER 2021-11-22 18:39 | Emergency (ER) | payer BC ==
[~2021-11-22] VITALS: Ht 154.9 cm; Wt 61.2 kg
[~2021-11-22 18:39] MED LIST changes: -ADDE10 PO; -ALPR0.5T PO; +CEPH500B PO; +ONDA4TAB10 PO
[2021-11-22] MEDS ORDERED: ONDANSETRON 4MG INJ IVP ONE (21:30)
[2021-11-22] MEDS ORDERED: MORPHINE 2 MG SYG IVP ONE (21:30)
[2021-11-22 21:41] LABS: BASOPHILS % (AUTO) 0.3 % (0.0-5.0); LYMPHOCYTES % (AUTO) 19.7 % (21.0-51.0); MEAN CORPUSCULAR HEMOGLOBIN 34.3 pg (27.0-33.0); MEAN CORPUSCULAR HGB CONC 32.1 g/dL (32.0-36.0); MONOCYTES % (AUTO) 9.1 % (3.0-13.0); NEUTROPHILS % (AUTO) 67.6 % (40.0-77.0); PLATELET COUNT (AUTO) 289 K/uL (130-400); RED BLOOD CELL COUNT(AUTO) 2.71 MIL/uL (4.00-5.50); RED CELL DISTRIBUTION WIDTH 14.4 % (11.0-15.5)
[2021-11-22 22:00] LABS: CARBON DIOXIDE 24 mmol/L (21-32); CHLORIDE 103 mmol/L (101-111); CREATININE 0.5 mg/dL (0.5-1.5); GLOMERULAR FILTR. RATE CALC 144 mL/min (>60); GLUCOSE,RANDOM 92 mg/dL (70-105); POTASSIUM 3.1 mmol/L (3.5-5.1); SODIUM SERUM 135 mmol/L (136-145); UREA NITROGEN, BLOOD 7 mg/dL (7-18)
[2021-11-22 22:04] LABS: ALANINE AMINOTRANSFERASE 81 U/L (12-78); ALBUMIN 1.8 g/dL (3.5-5.0); ASPARTATE AMINOTRANSFERASE 189 U/L (10-37); BILIRUBIN,TOTAL 12.1 mg/dL (0.2-1.0); TOTAL PROTEIN, SERUM 5.7 g/dL (6.0-8.3)
[2021-11-22 22:07] LABS: LIPASE < 50 U/L (114-286)
[2021-11-22] MEDS ORDERED: POTASSIUM BICARB/CIT AC 25 MEQ TABLET.EFF PO ONE (22:30)
[2021-11-22] MEDS ORDERED: ONDANSETRON 4MG INJ ONE (22:34)
[2021-11-22] MEDS ORDERED: MORPHINE 2 MG SYG ONE (22:34)
[2021-11-22 22:38] LABS: APPEARANCE,URINE CLOUDY (CLEAR); BILIRUBIN,URINE LARGE (NEGATIVE); GLUCOSE, URINE (UA) 100 mg/dL (NEGATIVE); KETONES,URINE 15 mg/dL (NEGATIVE); LEUKOCYTE ESTERASE ,URINE TRACE (NEGATIVE); NITRATE,URINE POSITIVE (NEGATIVE); OCCULT BLOOD,URINE NEGATIVE (NEGATIVE); PH,URINE 6.5 (5.0-8.0); PROTEIN,URINE TRACE mg/dL (NEGATIVE)
[2021-11-22 22:45] LABS: HCG,QUAL RESULT NEGATIVE (NEGATIVE)
[2021-11-22 22:46] LABS: COLOR,URINE AMBER (YELLOW)
[2021-11-22 22:54] LABS: BACTERIA,URINE Rare /HPF (None Seen); CALCIUM OXALATE CRYSTALS,UR Few /LPF (None Seen); MUCUS,URINE Few LPF (None Seen); RBC,URINE None Seen /HPF (0-1); SQUAMOUS EPITHELIAL CELL,UR Moderate /HPF (0-2); WBC,URINE 0-1 /HPF (0-1)
[2021-11-22] MEDS ORDERED: DICY20TA2 PO (23:24)
[2021-11-22 23:48] VITALS: BP 112/70
== END 2021-11-22 23:59 | disposition home or self-care (01) ==
LOC: EDH 18:39
DX: D64.9 Anemia, unspecified (principal); E87.6 Hypokalemia; R79.89 Other specified abnormal findings of blood chemistry; K70.30 Alcoholic cirrhosis of liver without ascites; Z90.710 Acquired absence of both cervix and uterus; Z90.49 Acquired absence of other specified parts of digestive tract; Z98.890 Other specified postprocedural states; Z88.5 Allergy status to narcotic agent; Z79.899 Other long term (current) drug therapy
CPT/HCPCS: 36415; 71045; 80053; 81001; 81025; 83690; 84484; 84702; 85025; 87088; 96374; 96375; 99284; J2405

== ENCOUNTER 2021-12-05 14:10 | Emergency (ER) | payer BC ==
[~2021-12-05] VITALS: Ht 154.9 cm; Wt 64.0 kg
[~2021-12-05 14:10] MED LIST changes: +DICY20TA2 PO
[2021-12-05 15:15] LABS: BASOPHILS % (AUTO) 0.4 % (0.0-5.0); EOSINOPHILS % (AUTO) 1.5 % (0.0-8.0); LYMPHOCYTES % (AUTO) 24.2 % (21.0-51.0); MEAN CORPUSCULAR HEMOGLOBIN 31.4 pg (27.0-33.0); MEAN CORPUSCULAR HGB CONC 31.9 g/dL (32.0-36.0); MEAN CORPUSCULAR VOLUME 98.5 fL (79-99); MONOCYTES % (AUTO) 7.4 % (3.0-13.0); NEUTROPHILS % (AUTO) 66.3 % (40.0-77.0); PLATELET COUNT (AUTO) 201 K/uL (130-400); RED BLOOD CELL COUNT(AUTO) 2.74 MIL/uL (4.00-5.50); RED CELL DISTRIBUTION WIDTH 14.3 % (11.0-15.5); WHITE BLOOD COUNT (AUTO) 5.3 K/uL (4.8-10.8)
[2021-12-05 15:26] LABS: INR 1.46 (0.85-1.15); PROTHROMBIN TIME 15.4 SEC (9.6-11.6)
[2021-12-05 15:28] LABS: CARBON DIOXIDE 22 mmol/L (21-32); CHLORIDE 105 mmol/L (101-111); CREATININE 0.6 mg/dL (0.5-1.5); GLOMERULAR FILTR. RATE CALC 117 mL/min (>60); GLUCOSE,RANDOM 87 mg/dL (70-105); POTASSIUM 4.2 mmol/L (3.5-5.1); SODIUM SERUM 137 mmol/L (136-145); UREA NITROGEN, BLOOD 8 mg/dL (7-18)
[2021-12-05 15:32] LABS: ALANINE AMINOTRANSFERASE 47 U/L (12-78); ALBUMIN 1.9 g/dL (3.5-5.0); ALCOHOL, BLOOD < 3 mg/dL (0-10); AMMONIA 22 umol/L (11-32); ASPARTATE AMINOTRANSFERASE 105 U/L (10-37); BILIRUBIN,TOTAL 6.5 mg/dL (0.2-1.0); TOTAL PROTEIN, SERUM 5.9 g/dL (6.0-8.3)
[2021-12-05 15:33] LABS: LIPASE < 50 U/L (114-286)
[2021-12-05 16:23] LABS: APPEARANCE,URINE CLEAR (CLEAR); BILIRUBIN,URINE NEGATIVE (NEGATIVE); COLOR,URINE YELLOW (YELLOW); GLUCOSE, URINE (UA) NEGATIVE (NEGATIVE); KETONES,URINE NEGATIVE (NEGATIVE); LEUKOCYTE ESTERASE ,URINE TRACE (NEGATIVE); NITRATE,URINE NEGATIVE (NEGATIVE); OCCULT BLOOD,URINE SMALL (NEGATIVE); PROTEIN,URINE NEGATIVE (NEGATIVE); UROBILINOGEN,URINE 0.2 mg/dL (0.2-1.0)
[2021-12-05 16:27] LABS: HCG,QUAL RESULT NEGATIVE (NEGATIVE)
[2021-12-05] MEDS ORDERED: ONDANSETRON 4MG INJ IVP ONE (16:30)
[2021-12-05] MEDS ORDERED: MORPHINE 4 MG SYG IV ONE (16:30)
[2021-12-05 16:49] LABS: BACTERIA,URINE None Seen /HPF (None Seen); RBC,URINE 0-1 /HPF (0-1); SQUAMOUS EPITHELIAL CELL,UR Few /HPF (0-2); WBC,URINE 0-1 /HPF (0-1)
[2021-12-05] MEDS ORDERED: ONDA-104 PO (17:30)
[2021-12-05 17:52] VITALS: BP 102/70
== END 2021-12-05 17:53 | disposition home or self-care (01) ==
LOC: EDH 14:10
DX: K64.8 Other hemorrhoids (principal); F41.9 Anxiety disorder, unspecified; F98.8 Other specified behavioral and emotional disorders with onset usually occurring in childhood and adolescence; Z88.5 Allergy status to narcotic agent; Z90.49 Acquired absence of other specified parts of digestive tract; Z98.890 Other specified postprocedural states
CPT/HCPCS: 36415; 80053; 81001; 81025; 82140; 83690; 83735; 85025; 85610; 86850; 86900; 86901; 93005; 96374; 96375; 99284; J2270; J2405

== ENCOUNTER 2022-01-17 23:18 | Inpatient (IN) | payer BC ==
[~2022-01-17] VITALS: Ht 154.9 cm; Wt 70.2 kg
[~2022-01-17 23:18] MED LIST changes: +ONDA-104 PO
[2022-01-18] MEDS ORDERED: 0.9%NACL 1000ML 1,000 ML IV ONE
[2022-01-18 00:26] LABS: BASOPHILS % (AUTO) 0.3 % (0.0-5.0); EOSINOPHILS % (AUTO) 1.1 % (0.0-8.0); HEMATOCRIT 27.9 % (36-48); LYMPHOCYTES % (AUTO) 43.8 % (21.0-51.0); MEAN CORPUSCULAR HEMOGLOBIN 29.6 pg (27.0-33.0); MEAN CORPUSCULAR VOLUME 89.7 fL (79-99); NEUTROPHILS % (AUTO) 47.5 % (40.0-77.0); PLATELET COUNT (AUTO) 129 K/uL (130-400); RED BLOOD CELL COUNT(AUTO) 3.11 MIL/uL (4.00-5.50); RED CELL DISTRIBUTION WIDTH 22.9 % (11.0-15.5); WHITE BLOOD COUNT (AUTO) 3.7 K/uL (4.8-10.8)
[2022-01-18 00:35] LABS: CREATININE 0.9 mg/dL (0.5-1.5); POTASSIUM 3.5 mmol/L (3.5-5.1)
[2022-01-18 00:37] LABS: INR 1.67 (0.85-1.15); PROTHROMBIN TIME 17.4 SEC (9.6-11.6)
[2022-01-18 00:39] LABS: ALBUMIN 1.7 g/dL (3.5-5.0); BILIRUBIN,TOTAL 2.2 mg/dL (0.2-1.0); PARTIAL THROMBOPLASTIN TIME 39.7 SEC (26.3-35.5)
[2022-01-18 00:41] LABS: BILIRUBIN,URINE Small (NEGATIVE); COLOR,URINE Dark Yellow (YELLOW); GLUCOSE, URINE (UA) Negative (NEGATIVE); KETONES,URINE Trace mg/dL (NEGATIVE); LEUKOCYTE ESTERASE ,URINE Small (NEGATIVE); NITRATE,URINE Negative (NEGATIVE); OCCULT BLOOD,URINE Negative (NEGATIVE); PROTEIN,URINE Negative (NEGATIVE)
[2022-01-18 00:48] LABS: APPEARANCE,URINE SLIGHTLY CLOUDY (CLEAR)
[2022-01-18 00:50] LABS: HCG,QUAL RESULT NEGATIVE (NEGATIVE)
[2022-01-18 01:07] LABS: RBC,URINE 0-1 /HPF (0-1)
[2022-01-18 01:08] LABS: BACTERIA,URINE Rare /HPF (None Seen); SQUAMOUS EPITHELIAL CELL,UR Moderate /HPF (0-2); TRANSITIONAL EPI CELLS,URINE Few /HPF (None Seen)
[2022-01-18] MEDS ORDERED: CEFTRIAXONE 2GM VIAL IVP ONE (01:30)
[2022-01-18] MEDS ORDERED: 0.9%NACL 1000ML 2,000 ML IV ONE (01:30)
[2022-01-18] MEDS ORDERED: VANCOMYCIN 1G VIAL IVPB ONE (01:30)
[2022-01-18] MEDS ORDERED: ACETAMINOPHEN 325 MG TAB PO ONE (02:00)
[2022-01-18 04:09] LABS: BASOPHILS % (AUTO) 0.3 % (0.0-5.0); EOSINOPHILS % (AUTO) 1.2 % (0.0-8.0); HEMATOCRIT 28.2 % (36-48); LYMPHOCYTES % (AUTO) 45.3 % (21.0-51.0); MEAN CORPUSCULAR HEMOGLOBIN 29.8 pg (27.0-33.0); MEAN CORPUSCULAR HGB CONC 32.6 g/dL (32.0-36.0); MEAN CORPUSCULAR VOLUME 91.3 fL (79-99); MONOCYTES % (AUTO) 6.6 % (3.0-13.0); NEUTROPHILS % (AUTO) 46.3 % (40.0-77.0); PLATELET COUNT (AUTO) 117 K/uL (130-400); RED BLOOD CELL COUNT(AUTO) 3.09 MIL/uL (4.00-5.50); RED CELL DISTRIBUTION WIDTH 23.4 % (11.0-15.5); WHITE BLOOD COUNT (AUTO) 3.3 K/uL (4.8-10.8)
[2022-01-18 04:19] LABS: CREATININE 0.8 mg/dL (0.5-1.5); POTASSIUM 3.4 mmol/L (3.5-5.1)
[2022-01-18 04:24] LABS: ALBUMIN 1.5 g/dL (3.5-5.0); MAGNESIUM 1.4 mg/dL (1.80-2.40); PHOSPHORUS 3.3 mg/dL (2.5-4.9); TOTAL PROTEIN, SERUM 5.5 g/dL (6.0-8.3)
[2022-01-18] MEDS ORDERED: VANCOMYCIN 750MG VIAL ONE (04:28)
[2022-01-18] MEDS ORDERED: FURO20TA4 PO (06:11)
[2022-01-18] MEDS ORDERED: SPIR50TA5 PO (06:11)
[2022-01-18] MEDS ORDERED: LORA5SOL62 PO (06:11)
[2022-01-18] MEDS ORDERED: LACT10SO5 PO (06:11)
[2022-01-18] MEDS ORDERED: AMPH20TA3 PO (06:11)
[2022-01-18] MEDS ORDERED: ASCO500T20 PO (06:11)
[2022-01-18] MEDS ORDERED: DICY20TA3 PO (06:11)
[2022-01-18] MEDS ORDERED: ALPR0.255 PO (06:11)
[2022-01-18] MEDS ORDERED: ONDANSETRON 4MG INJ ONE (06:19)
[2022-01-18] MEDS ORDERED: ONDANSETRON 4MG INJ IVP ONE ×2 (06:30)
[2022-01-18] MEDS ORDERED: LIDOCAINE HCL-MPF 1% 2ML VIAL IV PRN (08:30)
[2022-01-18] MEDS ORDERED: POTASSIUM CHLORIDE 10% ELIXIR 20 MEQ/15 ML UDCUP PO PRN (08:30)
[2022-01-18] MEDS ORDERED: POTASSIUM CHLORIDE 20MEQ/100ML 100 ML IV PRN (08:30)
[2022-01-18] MEDS ORDERED: LACTULOSE 20 GM/30 ML UDCUP PO PRN ×2 (08:30→09:00)
[2022-01-18] MEDS ORDERED: 0.9%NACL 50ML 50 ML IV ONE (08:38)
[2022-01-18] MEDS: ZOSYN 3.375GM +NS 50ML IV SCH ×2 (08:44→16:18)
[2022-01-18] MEDS: MAGNESIUM 2GM PREMIX 50ML 50 ML IV PRN (08:45)
[2022-01-18] MEDS: KCL 20 MEQ ERTAB PO PRN ×3 (08:45→16:18)
[2022-01-18 13:20] VITALS: BP 134/88
[2022-01-18] MEDS: KETOROLAC 30MG VIAL (30MG/ML) IVP PRN (14:28)
[2022-01-18 16:00] VITALS: BP 107/70
[2022-01-18 20:00] VITALS: BP 109/73
[2022-01-18] MEDS: DOXYCYCLINE HYCLATE 100 MG TABLET PO SCH (21:40)
[2022-01-18] MEDS: ACETAMINOPHEN 325 MG TAB PO PRN (21:40)
[2022-01-19] VITALS (7 sets, daily range): BP systolic 93–112; BP diastolic 50–66
[2022-01-19] MEDS: ZOSYN 3.375GM +NS 50ML IV SCH ×3 (00:40→17:07)
[2022-01-19] MEDS: KETOROLAC 30MG VIAL (30MG/ML) IVP PRN ×2 (03:56→17:07)
[2022-01-19] MEDS: DOXYCYCLINE HYCLATE 100 MG TABLET PO SCH ×2 (09:20→21:09)
[2022-01-19 12:50] LABS: HEMATOCRIT 25.2 % (36-48); MEAN CORPUSCULAR HEMOGLOBIN 30.5 pg (27.0-33.0); MEAN CORPUSCULAR HGB CONC 32.5 g/dL (32.0-36.0); MEAN CORPUSCULAR VOLUME 93.7 fL (79-99); RED BLOOD CELL COUNT(AUTO) 2.69 MIL/uL (4.00-5.50); RED CELL DISTRIBUTION WIDTH 24.4 % (11.0-15.5); WHITE BLOOD COUNT (AUTO) 3.5 K/uL (4.8-10.8)
[2022-01-19 13:00] LABS: POTASSIUM 3.8 mmol/L (3.5-5.1)
[2022-01-19] MEDS ORDERED: IOHEXOL-350 75 ML VIAL IV ONE (16:11)
[2022-01-20] MEDS: ACETAMINOPHEN 325 MG TAB PO PRN (00:49)
[2022-01-20] MEDS: ZOSYN 3.375GM +NS 50ML IV SCH ×4 (00:49→23:53)
[2022-01-20 04:16] VITALS: BP 98/53
[2022-01-20 04:59] LABS: HEMATOCRIT 22.6 % (36-48); MEAN CORPUSCULAR HEMOGLOBIN 29.8 pg (27.0-33.0); MEAN CORPUSCULAR HGB CONC 31.4 g/dL (32.0-36.0); RED BLOOD CELL COUNT(AUTO) 2.38 MIL/uL (4.00-5.50); RED CELL DISTRIBUTION WIDTH 25.3 % (11.0-15.5); WHITE BLOOD COUNT (AUTO) 3.6 K/uL (4.8-10.8)
[2022-01-20 05:11] LABS: ALBUMIN 1.3 g/dL (3.5-5.0); BILIRUBIN,TOTAL 2.2 mg/dL (0.2-1.0); CREATININE 0.8 mg/dL (0.5-1.5); MAGNESIUM 1.8 mg/dL (1.80-2.40); POTASSIUM 3.5 mmol/L (3.5-5.1)
[2022-01-20] MEDS: KETOROLAC 30MG VIAL (30MG/ML) IVP PRN ×2 (05:25→17:23)
[2022-01-20 08:00] VITALS: BP 96/57
[2022-01-20] MEDS: DOXYCYCLINE HYCLATE 100 MG TABLET PO SCH ×2 (08:34→21:09)
[2022-01-20] MEDS: ONDANSETRON 4MG INJ IVP PRN (09:22)
[2022-01-20 16:00] VITALS: BP 113/73
[2022-01-20 19:35] VITALS: BP 97/57
[2022-01-20] MEDS: KCL 20 MEQ ERTAB PO PRN (22:53)
[2022-01-20 23:46] VITALS: BP 94/48
[2022-01-20] MEDS: MAGNESIUM 2GM PREMIX 50ML 50 ML IV PRN (23:49)
[2022-01-21] VITALS (23 sets, daily range): BP systolic 86–116; BP diastolic 51–73
[2022-01-21] MEDS: KCL 20 MEQ ERTAB PO PRN (00:38)
[2022-01-21] MEDS: KETOROLAC 30MG VIAL (30MG/ML) IVP PRN ×2 (05:10→20:03)
[2022-01-21 05:24] LABS: BASOPHILS % (AUTO) 0.5 % (0.0-5.0); EOSINOPHILS % (AUTO) 1.5 % (0.0-8.0); HEMATOCRIT 27.9 % (36-48); LYMPHOCYTES % (AUTO) 35.5 % (21.0-51.0); MEAN CORPUSCULAR HEMOGLOBIN 29.9 pg (27.0-33.0); MEAN CORPUSCULAR HGB CONC 32.6 g/dL (32.0-36.0); MEAN CORPUSCULAR VOLUME 91.8 fL (79-99); MONOCYTES % (AUTO) 9.8 % (3.0-13.0); NEUTROPHILS % (AUTO) 52.4 % (40.0-77.0); PLATELET COUNT (AUTO) 130 K/uL (130-400); RED BLOOD CELL COUNT(AUTO) 3.04 MIL/uL (4.00-5.50); RED CELL DISTRIBUTION WIDTH 24.1 % (11.0-15.5)
[2022-01-21 05:40] LABS: CREATININE 0.8 mg/dL (0.5-1.5); MAGNESIUM 2.3 mg/dL (1.80-2.40); POTASSIUM 3.9 mmol/L (3.5-5.1)
[2022-01-21] MEDS ORDERED: CYANOCOBALAMIN (VITAMIN B-12) 1000 MCG/ML 1ML VIAL IM SCH ×2 (07:00→10:00)
[2022-01-21] MEDS ORDERED: FOLIC ACID 1 MG TABLET PO SCH (09:00)
[2022-01-21] MEDS: ZOSYN 3.375GM +NS 50ML IV SCH ×2 (09:49→15:45)
[2022-01-21] MEDS: DOXYCYCLINE HYCLATE 100 MG TABLET PO SCH ×2 (10:00→20:02)
[2022-01-21] MEDS ORDERED: PROPOFOL 10 MG/ML 20ML VIAL IV ONE (11:04)
[2022-01-21] MEDS ORDERED: LIDOCAINE PF 100MG/5ML (2%) SYRINGE 5ML ONE (11:08)
[2022-01-21] MEDS ORDERED: SUCCINYLCHOLINE 200MG/10ML SYR ONE (11:08)
[2022-01-21] MEDS ORDERED: GLYCOPYRROLATE 1 MG/5 ML SYRINGE ONE (11:09)
[2022-01-21] MEDS ORDERED: ROCURONIUM 10MG/1ML SYR 10 MG/ML ML ONE (11:10)
[2022-01-21] MEDS ORDERED: NEOSTIGMINE 5MG/5ML SYR IV ONE (11:10)
[2022-01-21] MEDS ORDERED: PHENYLEPHRINE HCL 10 MG/ML 1ML VIAL IV ONE ×3 (11:10→11:15)
[2022-01-21 14:14] LABS: TYPHUS FEVER IGG <1:64 (Neg:<1:64); TYPHUS FEVER IGM <1:64 (Neg:<1:64)
[2022-01-21] MEDS ORDERED: MORPHINE 2 MG SYG ONE (14:40)
[2022-01-21] MEDS: FOLIC ACID 1 MG TABLET PO SCH (15:45)
[2022-01-21] MEDS: SUCRALFATE 1 GM TABLET PO SCH ×2 (15:45→20:02)
[2022-01-21] MEDS: MORPHINE 2 MG SYG IVP PRN (22:01)
[2022-01-22] MEDS: ZOSYN 3.375GM +NS 50ML IV SCH ×2 (00:19→09:35)
[2022-01-22 04:00] VITALS: BP 91/58
[2022-01-22] MEDS: SUCRALFATE 1 GM TABLET PO SCH ×4 (06:17→12:10)
[2022-01-22] MEDS: MORPHINE 2 MG SYG IVP PRN ×2 (06:24→13:20)
[2022-01-22 07:42] LABS: BASOPHILS % (AUTO) 0.3 % (0.0-5.0); EOSINOPHILS % (AUTO) 1.7 % (0.0-8.0); HEMATOCRIT 28.6 % (36-48); LYMPHOCYTES % (AUTO) 35.1 % (21.0-51.0); MEAN CORPUSCULAR HEMOGLOBIN 30.6 pg (27.0-33.0); MEAN CORPUSCULAR HGB CONC 32.2 g/dL (32.0-36.0); MONOCYTES % (AUTO) 8.9 % (3.0-13.0); NEUTROPHILS % (AUTO) 53.7 % (40.0-77.0); PLATELET COUNT (AUTO) 148 K/uL (130-400); RED BLOOD CELL COUNT(AUTO) 3.01 MIL/uL (4.00-5.50); RED CELL DISTRIBUTION WIDTH 25.2 % (11.0-15.5); WHITE BLOOD COUNT (AUTO) 3.5 K/uL (4.8-10.8)
[2022-01-22 08:00] VITALS: BP 106/73
[2022-01-22 08:04] LABS: ALBUMIN 1.5 g/dL (3.5-5.0); BILIRUBIN,TOTAL 2.8 mg/dL (0.2-1.0); CREATININE 0.8 mg/dL (0.5-1.5); POTASSIUM 3.9 mmol/L (3.5-5.1); TOTAL PROTEIN, SERUM 5.8 g/dL (6.0-8.3)
[2022-01-22] MEDS ORDERED: PANTOPRAZOLE 40 MG TAB DR PO SCH (09:00)
[2022-01-22] MEDS: FOLIC ACID 1 MG TABLET PO SCH (09:35)
[2022-01-22] MEDS: DOXYCYCLINE HYCLATE 100 MG TABLET PO SCH (09:35)
[2022-01-22] MEDS: ONDANSETRON 4MG INJ IVP PRN (09:58)
[2022-01-22 12:00] VITALS: BP 106/61
[2022-01-22] MEDS ORDERED: SUCR1ORA15 PO (14:08)
[2022-01-22] MEDS ORDERED: PANT40TA55 PO (14:08)
[2022-01-22] MEDS ORDERED: DOXY100T2 PO (16:25)
[2022-01-27 09:16] LABS: DENGUE IGG ANTIBODY 1.07 ISR (<1.65); DENGUE IGM ANTIBODY 1.13 ISR (<1.65)
== END 2022-01-22 18:00 | disposition home or self-care (01) | DRG 368 ==
LOC: EDH 23:18 → EDHIP 01-18 01:16 → 3CH 01-18 13:20 → 3BH 01-18 20:19
PROVIDERS: ADMIT Internal Medicine Infectious Disease; ATTEND Internal Medicine Infectious Disease
PROC: 30233N1 Transfusion of Nonautologous Red Blood Cells into Peripheral Vein, Percutaneous Approach (ICD-10-PCS; 2022-01-20)
PROC: 0DB68ZX Excision of Stomach, Via Natural or Artificial Opening Endoscopic, Diagnostic (ICD-10-PCS; principal; 2022-01-21)
PROC: 0W3P8ZZ Control Bleeding in Gastrointestinal Tract, Via Natural or Artificial Opening Endoscopic (ICD-10-PCS; 2022-01-21)
DX: K21.01 Gastro-esophageal reflux disease with esophagitis, with bleeding (principal); K65.2 Spontaneous bacterial peritonitis; K28.4 Chronic or unspecified gastrojejunal ulcer with hemorrhage; K29.01 Acute gastritis with bleeding; N39.0 Urinary tract infection, site not specified; D68.9 Coagulation defect, unspecified; D61.818 Other pancytopenia; E87.6 Hypokalemia; Z79.899 Other long term (current) drug therapy; Z90.710 Acquired absence of both cervix and uterus; Z98.84 Bariatric surgery status; Z90.49 Acquired absence of other specified parts of digestive tract; E66.9 Obesity, unspecified; F41.9 Anxiety disorder, unspecified; F32.A Depression, unspecified; R53.81 Other malaise; E53.8 Deficiency of other specified B group vitamins; K70.31 Alcoholic cirrhosis of liver with ascites; Z68.29 Body mass index [BMI] 29.0-29.9, adult; D50.9 Iron deficiency anemia, unspecified
CPT/HCPCS: 36415; 36430; 43239; 43255; 71045; 71250; 74177; 80048; 80053; 81001; 81025; 82948; 83605; 83735; 84100; 85025; 85027; 85610; 85730; 86757; 86850; 86900; 86901; 86923; 87040; 87635; 87804; 93005; 99291; A4606; G0378; J0330; J0696; J1885; J2001; J2370; J2405; J2543; J2704; J2710; J3420; J3475; J3490; J7030; P9016; Q9967